=== PATIENT | male | born 1940 | race African-American/Black ===

== ENCOUNTER 2017-10-05 20:06 | Emergency (ER) | payer MEDICARE ==
[~2017-10-05] VITALS: Ht 177.8 cm; Wt 109.0 kg
[~2017-10-05 20:06] MED LIST: AMOXICILLIN500 MG PO
[2017-10-05 21:48] LABS: HEMATOCRIT 32.1 % (39.0-50.0); HEMOGLOBIN 10.5 g/dl (14.0-18.0); IMMATURE GRANULOCYTES 0.1 % (0.0-1.0); MEAN CELL VOLUME 86.8 fL CALC (80.0-100.0); MEAN CORPUSCULAR HGB 28.4 pG CALC (26.0-32.0); MEAN CORPUSCULAR HGB CONC 32.7 g/L CALC (32.0-36.0); NEUT# 9.25 thou/uL (1.82-7.42); RED BLOOD COUNT 3.7 mill/uL (4.70-6.10); RED CELL DISTRI WIDTH 15.6 % (11.5-15.5)
[2017-10-05 22:04] LABS: ALBUMIN 2.8 g/dL (3.2-5.0); BILIRUBIN, TOTAL 0.4 mg/dL (0.0-1.4); TOTAL PROTEIN 5.1 g/dL (6.3-8.2)
[2017-10-05 22:24] LABS: POTASSIUM 6.9 mmol/l (3.5-5.1)
[2017-10-05 23:09] LABS: URINE BILIRUBIN - DIPSTICK NEGATIVE (NEGATIVE); URINE BLOOD DIPSTICK MODERATE (NEGATIVE); URINE CLARITY CLEAR; URINE COLOR YELLOW; URINE GLUCOSE - DIPSTICK NEGATIVE (NEGATIVE); URINE KETONE NEGATIVE (NEGATIVE); URINE LEUK ESTERASE NEGATIVE (NEGATIVE); URINE NITRITE - DIPSTICK NEGATIVE (Negative); URINE PROTEIN - DIPSTICK 100 mg/dL (NEG-TRACE); URINE SPECIFIC GRAVITY >=1.030; URINE UROBILINOGEN - DIPSTICK 0.2 E.U./dL (0.2)
[2017-10-05 23:18] LABS: URINE WBC 0-2 WBC/hpf (0-5)
[2017-10-05 23:19] LABS: URINE AMORPH SEDIMENT FEW hpf (NONE-FER); URINE BACTERIA FEW hpf; URINE COARSE GRANULAR CAST FEW lpf; URINE FINE GRAN CAST FEW lpf; URINE SQUAMOUS EPITHELIAL CELL FEW EPI/hpf (0-FEW)
[2017-10-06 00:15] VITALS: BP 170/91
--- NOTE | 2017-10-07 09:15 | NUR ---
CULTURE RESULTS FAXED TO [facility] AT [facility] AT 0900 AND # [phone]. FINAL RESULTS WILL BE FAXED WHEN AVAILABLE.
== END 2017-10-06 00:15 ==
LOC: ED 20:06
PROVIDERS: Emergency Medicine
PROC: 0T9B70Z Drainage of Bladder with Drainage Device, Via Natural or Artificial Opening (ICD-10-PCS; principal; 2017-10-05)
DX: I12.9 Hypertensive chronic kidney disease with stage 1 through stage 4 chronic kidney disease, or unspecified chronic kidney disease (principal); N18.9 Chronic kidney disease, unspecified; E87.5 Hyperkalemia; I48.91 Unspecified atrial fibrillation; R79.89 Other specified abnormal findings of blood chemistry; R22.43 Localized swelling, mass and lump, lower limb, bilateral; R22.33 Localized swelling, mass and lump, upper limb, bilateral; R06.02 Shortness of breath